=== PATIENT | female | born 1945 | race Caucasian/White ===

== ENCOUNTER → 2017-07-27 | Outpatient (CLI) | payer OTHER, BC ==
[~2017-07-27] MED LIST: ACID CONTROLLER20 MG PO; ANTIVERT12.5 MG PO; ASPIR 8181 M1 PO; CELEXA20 MG PO; CORDARONE200 MG PO; DESYREL100 MG PO; DIGESTIVE PROB1 EAC1 PO; FOSAMAX70 MG PO; IMDUR30 MG PO; LIPITOR40 MG PO; LOPRESSOR25 MG PO; LYRICA100 MG PO; MAG-OXIDE400 MG PO; MEDROL4 MG PO; MELATIN3 MG PO; NORVASC5 MG PO; PERCOCET 5/31 TABLET PO; PLAVIX75 MG PO; PRINIVIL20 MG PO; RAYOS5 MG PO; ZANTAC150 MG PO; ZOLOFT50 MG PO
== END | disposition home or self-care (01) ==
LOC: RAD 09:51
DX: T85.858A Stenosis due to other internal prosthetic devices, implants and grafts, initial encounter (principal); K83.8 Other specified diseases of biliary tract; Z96.89 Presence of other specified functional implants; Z98.890 Other specified postprocedural states
CPT/HCPCS: 47531; 47532; J0330; J2405

== ENCOUNTER → 2017-07-29 | Outpatient (CLI) | payer OTHER, BC | END | disposition home or self-care (01) | LOC: AMB 09:58 | DX: Z46.89 Encounter for fitting and adjustment of other specified devices (principal); K80.50 Calculus of bile duct without cholangitis or cholecystitis without obstruction; I10 Essential (primary) hypertension; F17.200 Nicotine dependence, unspecified, uncomplicated | CPT/HCPCS: 74328; 87081; C1757; J0330; J2405 ==

== ENCOUNTER 2017-11-25 08:07 | Emergency (ER) | payer OTHER, BC ==
[~2017-11-25] VITALS: Ht 147.3 cm; Wt 59.5 kg
[2017-11-25] MEDS ORDERED: BREO ELLIPTA I1 EACH IH (08:36)
[2017-11-25] MEDS ORDERED: DUONEB 2.5-0.5 M3 ML AEROSOL (08:36)
[2017-11-25] MEDS ORDERED: VIT B1 (08:38)
[2017-11-25] MEDS ORDERED: VIT D3 (08:40)
[2017-11-25] MEDS ORDERED: MELATONIN3 MG PO (08:41)
[2017-11-25] MEDS ORDERED: PROMETHAZINE HC25 M1 PO (08:41)
[2017-11-25] MEDS ORDERED: LACTOBACILLUS1 EACH PO (08:42)
[2017-11-25] MEDS ORDERED: AMLODIPINE BESY10 MG PO (08:43)
[2017-11-25 11:46] VITALS: BP 166/83
== END 2017-11-25 11:48 | disposition home or self-care (01) ==
LOC: EME 08:07
DX: S60.221A Contusion of right hand, initial encounter (principal); S00.03XA Contusion of scalp, initial encounter; S50.311A Abrasion of right elbow, initial encounter; M54.2 Cervicalgia; R07.81 Pleurodynia; M25.511 Pain in right shoulder; M25.512 Pain in left shoulder; W18.30XA Fall on same level, unspecified, initial encounter; M85.841 Other specified disorders of bone density and structure, right hand; R29.6 Repeated falls; I10 Essential (primary) hypertension; E78.5 Hyperlipidemia, unspecified; I25.2 Old myocardial infarction; Z95.5 Presence of coronary angioplasty implant and graft; Z98.84 Bariatric surgery status; Z79.82 Long term (current) use of aspirin; Z79.52 Long term (current) use of systemic steroids; F17.200 Nicotine dependence, unspecified, uncomplicated
CPT/HCPCS: 70450; 73130

== ENCOUNTER 2017-12-15 19:35 | Inpatient (IN) | payer OTHER, BC ==
[~2017-12-15] VITALS: Ht 149.9 cm; Wt 62.5 kg
[~2017-12-15 19:35] MED LIST changes: +AMLODIPINE BESY10 MG PO; +BREO ELLIPTA I1 EACH IH; +DUONEB 2.5-0.5 M3 ML AEROSOL; +LACTOBACILLUS1 EACH PO; -MAG-OXIDE400 MG PO; +MAGNESIUM OXID500 MG PO; +MELATONIN3 MG PO; +PROMETHAZINE HC25 M1 PO; +VITAMIN B-1100 MG PO; +VITAMIN D31000 UNI2 PO
[2017-12-15 21:20] LABS: BASOPHIL (%) 0.5 % (0-1); BASOPHIL COUNT 0.1 K/uL (0-0.1); EOSINOPHIL (%) 1.7 % (0-5); EOSINOPHIL COUNT 0.2 K/uL (0-0.3); HEMATOCRIT 39.4 % (36.0-46.0); HEMOGLOBIN 12.4 G/DL (11.9-15.5); IMMATURE GRANULOCYTE (%) 0.4 % (0.0-0.7); LYMPHOCYTE (%) 16.1 % (15-42); LYMPHOCYTE COUNT 1.6 K/uL (1.0-2.8); MCH 26.2 PG (29.0-34.0); MCHC 31.5 G/DL (30.0-36.0); MCV 83.3 FL (83-99); MONOCYTE COUNT 0.6 K/uL (0-0.8); NEUTROPHIL (%) 75.3 % (45-76); NEUTROPHIL COUNT 7.6 K/uL (1.8-6.4); PLATELET COUNT 175 K/uL (156-360); RBC DIS.WIDTH-CV 18.1 % (11.8-14.6); RBC DIS.WIDTH-SD 54.9 % (39-53); RED BLOOD COUNT 4.73 M/uL (3.80-5.20); WHITE BLOOD COUNT 10.1 K/uL (4.1-10.2)
[2017-12-15 21:23] LABS: ALBUMIN 4.1 g/dL (3.2-4.8); CHLORIDE 107 mEq/L (99-109); MAGNESIUM 2.3 mg/dL (1.3-2.7); POTASSIUM 4.8 mEq/L (3.7-5.4); SODIUM 139 mEq/L (136-147)
[2017-12-15 21:25] LABS: GLUCOSE 97 mg/dL (70-99); TOTAL PROTEIN 6.8 g/dL (6.4-8.3)
[2017-12-15 21:27] LABS: TOTAL BILIRUBIN 0.4 mg/dL (0.0-1.0)
[2017-12-15 21:28] LABS: INTER. NORMALIZED RATIO 0.9
[2017-12-15 21:29] LABS: ALKALINE PHOSPHATASE 113 IU/L (3-129); CREATININE 1.9 mg/dL (0.6-1.3); GFR ESTIMATE (CALCULATED) 28 mL/min/
[2017-12-15 21:30] LABS: UREA NITROGEN (BUN) 14 mg/dL (9-23)
[2017-12-15 21:31] LABS: AST (GOT) 18 IU/L (2-34); PTT 26.1 SEC (25-37)
[2017-12-15 21:32] LABS: ALT (GPT) 16 IU/L (3-49)
[2017-12-15 21:35] LABS: TROP-I INTERPRETATION NEGATIVE; TROPONIN-I 0.01 ng/mL (0.0-0.30)
[2017-12-15 23:10] LABS: APPEARANCE CLEAR ((CLEAR)); BILIRUBIN NEGATIVE; BLOOD NEGATIVE; COLOR STRAW ((YELLOW)); GLUCOSE (STRIP) NEGATIVE; KETONES NEGATIVE; LEUKOCYTES TRACE; NITRITE NEGATIVE; PROTEIN (STRIP) NEGATIVE; SPECIFIC GRAVITY 1.005 (1.000-1.030); UROBILINOGEN 0.2 MG/DL (0.2-1.0)
[2017-12-15 23:19] LABS: BACTERIA NONE SEEN /HPF; EPITHELIAL CELLS RARE /HPF; MUCUS NONE SEEN /LPF; RED BLOOD CELLS NONE SEEN /HPF (0-5); UCUL ADDED? NO; WHITE BLOOD CELLS 0-5 /HPF (0-5)
[2017-12-16 01:19] VITALS: BP 141/71
[2017-12-16 03:58] VITALS: BP 125/70
[2017-12-16 08:02] VITALS: BP 99/56
[2017-12-16 10:21] VITALS: BP 99/53
[2017-12-16] MEDS ORDERED: CALCITRIOL0.25 MCG PO (15:13)
[2017-12-16 15:41] VITALS: BP 100/54
[2017-12-16 15:52] VITALS: BP 130/69
[2017-12-17 05:03] VITALS: BP 105/63
[2017-12-17 06:16] LABS: BASOPHIL (%) 0.1 % (0-1); EOSINOPHIL (%) 0 % (0-5); HEMATOCRIT 31.6 % (36.0-46.0); IMMATURE GRANULOCYTE (%) 0.3 % (0.0-0.7); LYMPHOCYTE (%) 7.1 % (15-42); LYMPHOCYTE COUNT 0.8 K/uL (1.0-2.8); MCH 25.7 PG (29.0-34.0); MCHC 30.4 G/DL (30.0-36.0); MCV 84.7 FL (83-99); MONOCYTE (%) 6.1 % (3-12); MONOCYTE COUNT 0.7 K/uL (0-0.8); NEUTROPHIL (%) 86.4 % (45-76); NEUTROPHIL COUNT 9.4 K/uL (1.8-6.4); PLATELET COUNT 149 K/uL (156-360); RBC DIS.WIDTH-CV 18.1 % (11.8-14.6); RBC DIS.WIDTH-SD 55.4 % (39-53); WHITE BLOOD COUNT 10.9 K/uL (4.1-10.2)
[2017-12-17 06:22] LABS: HEMOGLOBIN 9.6 G/DL (11.9-15.5); RED BLOOD COUNT 3.73 M/uL (3.80-5.20)
[2017-12-17 07:35] LABS: CHLORIDE 115 MEQ/L (99-109); CREATININE 1.5 MG/DL (0.6-1.3); GFR ESTIMATE (CALCULATED) 36 mL/min/; GLUCOSE 114 mg/dL (70-99); POTASSIUM 5.3 MEQ/L (3.7-5.4); SODIUM 141 MEQ/L (136-147); UREA NITROGEN (BUN) 14 mg/dL (9-23)
[2017-12-17 08:58] VITALS: BP 111/56
[2017-12-17 12:05] VITALS: BP 122/60
[2017-12-17 17:07] VITALS: BP 108/80
[2017-12-17 21:00] VITALS: BP 98/60
[2017-12-17 23:06] VITALS: BP 114/61
[2017-12-18 05:58] LABS: BASOPHIL (%) 0.2 % (0-1); EOSINOPHIL (%) 0.2 % (0-5); HEMATOCRIT 28.2 % (36.0-46.0); HEMOGLOBIN 8.7 G/DL (11.9-15.5); IMMATURE GRANULOCYTE (%) 0.7 % (0.0-0.7); LYMPHOCYTE (%) 14.2 % (15-42); LYMPHOCYTE COUNT 1.7 K/uL (1.0-2.8); MCHC 30.9 G/DL (30.0-36.0); MCV 84.4 FL (83-99); MONOCYTE (%) 9.8 % (3-12); MONOCYTE COUNT 1.2 K/uL (0-0.8); NEUTROPHIL (%) 74.9 % (45-76); PLATELET COUNT 156 K/uL (156-360); RBC DIS.WIDTH-CV 18.3 % (11.8-14.6); RBC DIS.WIDTH-SD 55.5 % (39-53); RED BLOOD COUNT 3.34 M/uL (3.80-5.20); WHITE BLOOD COUNT 12.1 K/uL (4.1-10.2)
[2017-12-18 08:05] VITALS: BP 120/60
[2017-12-18 12:36] VITALS: BP 90/53
[2017-12-18] MEDS ORDERED: NICOTINE PATCH1 EACH TD (16:47)
[2017-12-18] MEDS ORDERED: MILLIPRED5 MG PO (16:51)
[2017-12-18] MEDS ORDERED: OXYCODONE HCL5 MG PO (16:51)
[2017-12-18] MEDS ORDERED: MIRALAX17 GM PO (16:51)
[2017-12-18] MEDS ORDERED: XARELTO10 MG PO (16:53)
[2017-12-18] MEDS ORDERED: LOPRESSOR25 MG PO (16:54)
[2017-12-18 17:30] VITALS: BP 147/67
[2017-12-18 19:54] VITALS: BP 155/59
[2017-12-18 23:34] VITALS: BP 105/61
[2017-12-19 03:03] VITALS: BP 139/66
[2017-12-19 07:32] VITALS: BP 115/60
== END 2017-12-19 10:13 | DRG 481 ==
LOC: EME → EDBD 19:35 → 3EAST 23:00 → EDOF 23:00 → ENRESERV 23:11 → 3EAST 12-16 00:50
PROVIDERS: Emergency Medicine; Internal Medicine
PROC: 0QS734Z Reposition Left Upper Femur with Internal Fixation Device, Percutaneous Approach (ICD-10-PCS; principal; 2017-12-16)
DX: S72.22XA Displaced subtrochanteric fracture of left femur, initial encounter for closed fracture (principal); D62 Acute posthemorrhagic anemia; S72.142A Displaced intertrochanteric fracture of left femur, initial encounter for closed fracture; W10.9XXA Fall (on) (from) unspecified stairs and steps, initial encounter; I12.9 Hypertensive chronic kidney disease with stage 1 through stage 4 chronic kidney disease, or unspecified chronic kidney disease; N18.3 Chronic kidney disease, stage 3 (moderate); M06.9 Rheumatoid arthritis, unspecified; I25.10 Atherosclerotic heart disease of native coronary artery without angina pectoris; Z95.5 Presence of coronary angioplasty implant and graft; Z98.84 Bariatric surgery status; J44.9 Chronic obstructive pulmonary disease, unspecified; R32 Unspecified urinary incontinence; M79.7 Fibromyalgia; I25.2 Old myocardial infarction; I08.0 Rheumatic disorders of both mitral and aortic valves; E78.5 Hyperlipidemia, unspecified; Z79.52 Long term (current) use of systemic steroids; G89.29 Other chronic pain; K21.9 Gastro-esophageal reflux disease without esophagitis; F17.200 Nicotine dependence, unspecified, uncomplicated
CPT/HCPCS: 71045; 73501; 73502; 73552; 76000; 80048; 80053; 81003; 83735; 84484; 85025; 85610; 85730; 93005; 94664; 99281; 99285; C1713; J0131; J0690; J1100; J1644; J2270; J2405; J2710; J3010; J3480; J7042; J7050; J7512; J7643

== ENCOUNTER 2017-12-19 08:21 | Inpatient (IN) | payer OTHER, BC ==
[~2017-12-19] VITALS: Ht 149.9 cm; Wt 60.0 kg
[~2017-12-19 08:21] MED LIST changes: +CALCITRIOL0.25 MCG PO; +MILLIPRED5 MG PO; +MIRALAX17 GM PO; +NICOTINE PATCH1 EACH TD; +OXYCODONE HCL5 MG PO; +XARELTO10 MG PO
[2017-12-19 10:23] VITALS: BP 131/60
[2017-12-19 15:06] VITALS: BP 116/64
[2017-12-20 05:55] VITALS: BP 155/70
[2017-12-20 07:02] LABS: HEMATOCRIT 29.7 % (36.0-46.0); HEMOGLOBIN 9.1 G/DL (11.9-15.5); MCH 25.8 PG (29.0-34.0); MCHC 30.6 G/DL (30.0-36.0); MCV 84.1 FL (83-99); PLATELET COUNT 197 K/uL (156-360); RBC DIS.WIDTH-CV 18.6 % (11.8-14.6); RBC DIS.WIDTH-SD 56.8 % (39-53); RED BLOOD COUNT 3.53 M/uL (3.80-5.20); WHITE BLOOD COUNT 12.8 K/uL (4.1-10.2)
[2017-12-20 07:40] LABS: ALBUMIN 3.1 G/DL (3.2-4.8); ALKALINE PHOSPHATASE 75 IU/L (3-129); AST (GOT) 10 IU/L (2-34); CHLORIDE 111 MEQ/L (99-109); CREATININE 1.3 MG/DL (0.6-1.3); GFR ESTIMATE (CALCULATED) 43 mL/min/; GLUCOSE 82 mg/dL (70-99); POTASSIUM 4.7 MEQ/L (3.7-5.4); SODIUM 141 MEQ/L (136-147); TOTAL BILIRUBIN 0.4 MG/DL (0.0-1.0); TOTAL PROTEIN 5.2 G/DL (6.4-8.3); UREA NITROGEN (BUN) 20 mg/dL (9-23)
[2017-12-20 07:52] LABS: ALT (GPT) < 3 IU/L (3-49)
[2017-12-20 15:01] VITALS: BP 121/81
[2017-12-21 05:36] VITALS: BP 111/60
[2017-12-21 15:30] VITALS: BP 131/63
[2017-12-22 05:41] VITALS: BP 120/70
[2017-12-22 15:59] VITALS: BP 122/58
[2017-12-23 05:12] VITALS: BP 118/63
[2017-12-23 15:36] VITALS: BP 129/75
[2017-12-24 05:47] VITALS: BP 134/65
[2017-12-24 15:06] VITALS: BP 139/69
[2017-12-25 06:14] VITALS: BP 114/57
[2017-12-25 15:44] VITALS: BP 127/59
[2017-12-26 04:49] VITALS: BP 124/79
[2017-12-26 20:18] VITALS: BP 120/79
[2017-12-27 04:50] VITALS: BP 100/52
[2017-12-27 15:50] VITALS: BP 115/56
[2017-12-28 05:01] VITALS: BP 116/53
[2017-12-28 15:12] VITALS: BP 128/74
[2017-12-29 06:04] VITALS: BP 149/74
[2017-12-29 16:04] VITALS: BP 133/63
[2017-12-30 05:34] VITALS: BP 129/64
[2017-12-30 15:14] VITALS: BP 135/73
[2017-12-31 05:06] VITALS: BP 116/62
[2017-12-31 15:33] VITALS: BP 104/50
[2017-12-31] MEDS ORDERED: SENNA PLUS TAB1 EACH PO (19:25)
[2017-12-31] MEDS ORDERED: XARELTO15 MG PO (19:25)
[2017-12-31] MEDS ORDERED: RAYOS5 MG PO (19:25)
[2017-12-31] MEDS ORDERED: CELECOXIB100 MG PO (19:25)
[2017-12-31] MEDS ORDERED: VITAMIN B-6100 MG PO (19:25)
[2017-12-31] MEDS ORDERED: FERROUS SULFAT325 MG PO (19:25)
[2017-12-31] MEDS ORDERED: DOCUSATE SODIU100 MG PO (19:25)
[2017-12-31] MEDS ORDERED: NICOTINE PATCH1 EACH TD (19:25)
[2018-01-01 06:42] VITALS: BP 125/67
== END 2018-01-01 15:10 | disposition home health service (06) | DRG 560 ==
LOC: 3WEST 08:21 → ENRESERV 08:22 → 3WEST 08:25 → ENPENDDIS 12-30 → 3WEST 01-01 15:10
PROVIDERS: Physical Medicine & Rehabilitation Pain Medicine
PROC: F07M0ZZ Range of Motion and Joint Mobility Treatment of Musculoskeletal System - Whole Body (ICD-10-PCS; principal; 2017-12-19)
DX: S72.142D Displaced intertrochanteric fracture of left femur, subsequent encounter for closed fracture with routine healing (principal); M06.9 Rheumatoid arthritis, unspecified; D62 Acute posthemorrhagic anemia; E83.51 Hypocalcemia; G89.18 Other acute postprocedural pain; I12.9 Hypertensive chronic kidney disease with stage 1 through stage 4 chronic kidney disease, or unspecified chronic kidney disease; I25.10 Atherosclerotic heart disease of native coronary artery without angina pectoris; N18.3 Chronic kidney disease, stage 3 (moderate); F32.9 Major depressive disorder, single episode, unspecified; J44.9 Chronic obstructive pulmonary disease, unspecified; E78.5 Hyperlipidemia, unspecified; F17.210 Nicotine dependence, cigarettes, uncomplicated; M81.0 Age-related osteoporosis without current pathological fracture; D72.829 Elevated white blood cell count, unspecified; W19.XXXA Unspecified fall, initial encounter; I80.8 Phlebitis and thrombophlebitis of other sites; R53.1 Weakness; M25.511 Pain in right shoulder; T38.0X5A Adverse effect of glucocorticoids and synthetic analogues, initial encounter; G47.00 Insomnia, unspecified; Z95.5 Presence of coronary angioplasty implant and graft; Z87.442 Personal history of urinary calculi; Z98.84 Bariatric surgery status
CPT/HCPCS: 73030; 73060; 73502; 74018; 80053; 85027; 93971; 94640; 97110 GO; 97530 GP; J7512